=== PATIENT | male | born 2000 | race Caucasian/White ===

== ENCOUNTER 2019-12-04 19:23 | Emergency (ER) | payer SELFPAY ==
--- NOTE | 2019-12-04 19:58 | ER Document Report ---
ED Medical Screen (RME) - General Stated Complaint: POSSIBLE ABCESS ON BUTTOCKS Time Seen by Provider: 12/04/19 19:56 Information source: Patient Notes: This is a 19-year-old male presented to the emergency room today stating that he had pain between the 2 clefts of his gluteus tripp over the last 2 days it feels inflamed and abscess. Upon evaluation it was certainly tender to palpation he will be sent to the back for potential I&D. Physical Exam - Vital signs Vitals: Temp Pulse Resp BP Pulse Ox 98.0 F 78 18 142/83 H 98 12/04/19 19:43 12/04/19 19:43 12/04/19 19:43 12/04/19 19:43 12/04/19 19:43 - Rectal Hemorrhoids: Other - Tenderness to the medial and superior aspect of the gluteal cleft. Course - Vital Signs Vital signs: Temp Pulse Resp BP Pulse Ox 98.0 F 78 18 142/83 H 98 12/04/19 19:43 12/04/19 19:43 12/04/19 19:43 12/04/19 19:43 12/04/19 19:43
[2019-12-04] MEDS ORDERED: HYDROCODONE/ACETAMINOPHEN 5-325 MG TABLET PO ONE (22:54)
[2019-12-04] MEDS: LIDOCAINE 1% INJ-PF (10 MG/ML) 30 ML SDV INJ ONE (23:25)
--- NOTE | 2019-12-04 23:30 | ER Document Report ---
ED General - General Chief Complaint: Rectal Abscess Stated Complaint: POSSIBLE ABCESS ON BUTTOCKS Time Seen by Provider: 12/04/19 19:56 Primary Care Provider: LAMBERT COOK MD [ACTIVE STAFF] - Follow up in 3-5 days LITZY CORDERO MD [COMMUNITY BASED STAFF] - Follow up in 3-5 days Notes: 19-year-old male presents for 2 days of possible rectal abscess. Patient denies any drainage. Patient denies any fever. Patient denies any previous history of abscesses. TRAVEL OUTSIDE OF THE [place] IN LAST 30 DAYS: No - Related Data Home Medications: albuterol prn Past Medical History - General Information source: Patient - Social History Smoking Status: Current Every Day Smoker Family History: Other - did not review Patient has suicidal ideation: No Patient has homicidal ideation: No Review of Systems - Review of Systems Notes: Constitutional: Negative for fever. HENT: Negative for sore throat. Eyes: Negative for visual changes. Cardiovascular: Negative for chest pain. Respiratory: Negative for shortness of breath. Gastrointestinal: Negative for abdominal pain, vomiting or diarrhea. Genitourinary: Negative for dysuria. Musculoskeletal: Negative for back pain. Skin: Positive for abscess. Negative for rash. Neurological: Negative for headaches, weakness or numbness. 10 point ROS negative except as marked above and in HPI. Physical Exam - Vital signs Vitals: Temp Pulse Resp BP Pulse Ox 98.0 F 78 18 142/83 H 98 12/04/19 19:43 12/04/19 19:43 12/04/19 19:43 12/04/19 19:43 12/04/19 19:43 - Notes Notes: Chaperones: BETH Vargas for initial assessment and [facility] for I&D GENERAL: Well-appearing, well-nourished and in no acute distress. HEAD: Atraumatic, normocephalic. EYES: Extraocular movements intact, sclera anicteric, conjunctiva are normal. NECK: Normal range of motion, supple without lymphadenopathy or JVD. EXTREMITIES: Normal range of motion, no pitting or edema. No clubbing or cyanosis. RECTAL: Approx 4 cm fluctuant mildly erythematous abscess on left buttock directly lateral to gluteal cleft. Small area of approx 1 cm seen on right buttock that is firm and nonfluctuant. NEUROLOGICAL: Cranial nerves II through XII grossly intact. Normal speech, normal gait. PSYCH: Normal mood, normal affect. SKIN: Warm, Dry, normal turgor, no rashes or lesions noted. Course - Re-evaluation Re-evalutation: 12/04/19 abscess to buttock. I&D completed. Packing placed. Wound culture was taken. Patient tolerated procedure well. Up-to-date reviewed and they recommend 5-day course of Augmentin. This was prescribed along with pain medication with sedation warnings. Patient also to be referred to general surgery. Strict return precautions given. Patient voices understanding and agrees with plan of care. - Vital Signs Vital signs: Temp Pulse Resp BP Pulse Ox 97.7 F 85 16 148/85 H 98 12/05/19 00:10 12/05/19 00:10 12/05/19 00:10 12/05/19 00:10 12/05/19 00:10 Procedures - Incision and Drainage Rectal Type: Simple Anesthetic type: 1% Lidocaine Blade size: 11 I&D procedure: Chlorprep applied Incision Method: Incision made by scalpel Amount/type of drainage: 100 cc Discharge - Discharge Clinical Impression: Abscess of buttock Condition: Stable Disposition: HOME, SELF-CARE Instructions: Abscess ([facility]), Oral Narcotic Medication ([facility]) Additional Instructions: Please take your packing out in 24 hours. Please either follow-up at urgent care or here in the ER for wound recheck in 2 days. Please take antibiotics as prescribed and finish all doses even if you feel better. Please take ibuprofen as prescribed and take Magnolia for breakthrough pain. Do not drink or drive while taking Magnolia as it may make you drowsy. Follow-up with surgeon listed in 3 to 5 days. Please follow-up with your primary care doctor or 1 of the clinics listed in 3 to 5 days. Return immediately to ER if you start having any worsening symptoms, including increased swelling, increased redness, fever, increased pus drainage, increased pain, or any other symptoms that are concerning to you. Prescriptions: Hydrocodone/Acetaminophen [Magnolia 5-325 mg Tablet] 1 tab PO Q6HP PRN #15 tablet PRN Reason: Amoxicillin/Potassium Clav [Augmentin 875-125 Tablet] 1 tab PO Q12 #10 tablet Ibuprofen [Motrin 800 mg Tablet] 800 mg PO Q8H PRN #30 tab PRN Reason: Forms: Return to Work Referrals: LAMBERT COOK MD [ACTIVE STAFF] - Follow up in 3-5 days LITZY CORDERO MD [COMMUNITY BASED STAFF] - Follow up in 3-5 days
[2019-12-04] MEDS ORDERED: HYDROCODONE/ACETAMINOPHEN 5-325 MG (6 TAB/ER DISP) PO PRN (23:58)
[2019-12-05] MEDS: LIDOCAINE 1% INJ-PF (10 MG/ML) 30 ML SDV INJ ONE (00:05)
[2019-12-05 00:13] VITALS: BP 148/85
== END 2019-12-05 00:12 | disposition home or self-care (01) ==
LOC: ER 19:23
PROC: 0H98XZZ Drainage of Buttock Skin, External Approach (ICD-10-PCS; principal; 2019-12-04)
DX: K61.1 Rectal abscess (principal); F17.200 Nicotine dependence, unspecified, uncomplicated
CPT/HCPCS: 99283; 87070; 87205; 87075; 87077; 10060; J3490